=== PATIENT | male | born 1935 ===

== ENCOUNTER 2022-07-08 08:15 | Inpatient (IN) | payer OTHER ==
[~2022-07-08] VITALS: Ht 182.9 cm; Wt 81.6 kg
[2022-07-08] MEDS ORDERED: GLIMEPIRIDE1 M1 PO (09:29)
[2022-07-08] MEDS ORDERED: FOLIC ACID0.8 M1 PO (09:29)
[2022-07-08] MEDS ORDERED: ZETIA10 MG PO (09:29)
[2022-07-08] MEDS ORDERED: METFORMIN HCL500 M3 PO (09:30)
[2022-07-08] MEDS ORDERED: TAMS0.4C PO (09:31)
[2022-07-08] MEDS ORDERED: IRON18 MG PO (09:31)
[2022-07-08] MEDS ORDERED: DUTASTERIDE-TA1 EACH PO (09:32)
[2022-07-08] MEDS ORDERED: TOLTERODINE TART4 MG PO (09:33)
[2022-07-16] MEDS ORDERED: FOLINIC-PLUS C1 EACH (10:47)
[2022-07-16] MEDS ORDERED: DUTASTERIDE0.5 MG (10:47)
[2022-07-16] MEDS ORDERED: DICLOFENAC POTA50 MG (10:47)
[2022-07-16] MEDS ORDERED: VALACYCLOVIR1000 MG (10:47)
[2022-07-16] MEDS ORDERED: SIMVASTATIN40 MG (10:47)
[2022-07-16] MEDS ORDERED: TIMOLOL MALEATE5 M4 (10:48)
[2022-07-16] MEDS ORDERED: LATANOPROST2.5 ML (10:48)
[2022-07-16] MEDS ORDERED: BRIMONIDINE TART5 ML (10:48)
== END 2022-07-18 20:13 | disposition home or self-care (01) | DRG 470 ==
LOC: SURG 07-16 08:15 → O/R 07-16 08:37 → SURG 07-16 16:00 → SURH 07-16 19:06
PROVIDERS: ADMIT Orthopaedic Surgery; ATTEND Orthopaedic Surgery
PROC: 0SRC0J9 Replacement of Right Knee Joint with Synthetic Substitute, Cemented, Open Approach (ICD-10-PCS; principal; 2022-07-16 16:00)
DX: M17.11 Unilateral primary osteoarthritis, right knee (principal); D62 Acute posthemorrhagic anemia; M85.661 Other cyst of bone, right lower leg; N40.0 Benign prostatic hyperplasia without lower urinary tract symptoms; E11.9 Type 2 diabetes mellitus without complications; Z96.651 Presence of right artificial knee joint; Z20.822 Contact with and (suspected) exposure to COVID-19